=== PATIENT | female | born 1965 | race Caucasian/White ===

== ENCOUNTER 2016-09-06 22:27 | Inpatient (IN) | payer OTHER ==
--- NOTE | ~2016-09-06 | DS ---
Discharge Summary [address] [place]. [address] NAME: GERARD MERIDA : 65 STATUS : DIS IN PAT#: [id number] AGE: 51 ADM/REG DATE : 09/06/16 MR#: [id number] REPORT SERV DATE: 09/12/16 DICTATED BY: DATE: REPORT STATUS : Draft TRANSCRIBED BY: MODL DATE: 09/11/16 ADMISSION DATE: 09/06/2016 DISCHARGE DATE: 09/11/2016 DISCHARGE DIAGNOSES: 1. Right pleural effusion. 2. Pulmonary embolism. 3. Right lower lobe community-acquired pneumonia. 4. Diabetes mellitus type 2 with hyperglycemia. 5. Systolic and diastolic ischemic cardiomyopathy with ejection fraction of 15% to 20%. 6. Coronary artery disease. 7. Primary hypothyroidism. 8. Tobacco abuse. 9. Exposure to secondhand smoke. 10.Depression. 11.Noncompliance. PROCEDURES AND IMAGIN. 09/07/2016, chest PA and lateral showed:. a. Patchy consolidation at the right lung base with probable small right pleural fluid. Findings are likely secondary to pneumonia. b. Mild elevation of right hemidiaphragm. c. AICD in place. 2. 09/08/2016, chest PA and lateral showed patchy infiltrate with subsegmental consolidation and atelectasis, consistent with pneumonia. 3. 09/08/2016, venous Doppler bilateral lower extremities was negative for DVT. HOSPITAL COURSE: This is a pleasant 51-year-old female who was transferred from [facility], who had presented to their emergency room on 09/06/2016 with shortness of breath and generalized weakness. Their initial workup showed right-sided pneumonia and pulmonary embolism in left lower lobe. The patient did not want to stay and was subsequently given antibiotics there and a prescription for Xarelto. Please see admission H and P by Dr. Chris Stacy on 09/06/2016. I assumed care of the patient on 09/07/2016. The patient is a poor historian. I had a discussion about compliance of medications as the patient was unable to start Xarelto due to the fact her decided that it was too expensive. The patient presented with decreased lung sounds in the bases as well as 3 to 4+ pitting edema up to her lower abdomen and her sacral area. The patient states that sometimes she runs out of her insulin or metformin because she cannot afford them or spouse will use her metformin. The patient also sometimes goes to bed after taking her insulin in the morning and will wake up with it decreased. Upon pharmacy checking with her outpatient pharmacy for some of her medications, it was discovered that the patient was on Coreg 6.25 mg, but the last time they had a record of it being filled was in July 2015, but the patient states that she is taking it. The patient also had Aldactone 25 mg last filled in February 2015, but the patient states that she is taking it. The patient also thought she was on short-acting insulin, but according to outpatient pharmacy's record, she was on Lantus 35 units twice daily. The patient has a pulmonary emboli, for which she Discharge Summary [address] [address] NAME: GERARD MERIDA : 65 STATUS : DIS IN PAT#: [id number] AGE: 51 ADM/REG DATE : 09/06/16 MR#: [id number] REPORT SERV DATE: 09/12/16 DICTATED BY: DATE: REPORT STATUS : Draft TRANSCRIBED BY: MODL DATE: 09/11/16 receives Lovenox and now has been transitioned to Xarelto. The patient will be sent home with a Xarelto starter pack and a prescription for the first month as well as a discount card. The patient has received Rocephin and azithromycin for community-acquired pneumonia and is now finished with her antibiotic treatment. The patient's right-sided pleural effusion was treated with diuresis, and it has resolved. The patient's diabetes mellitus type 2 with hyperglycemia showed that she had a hemoglobin A1c of 10.5. car pick up driver has been in to discuss with her, and the patient will be given a prescription for a FreeStyle machine as well as lancets and strips, so that the patient will be able to purchase her strips at a more effective cost. The patient has been instructed to take her blood sugars four times a day. While the patient has been here, she has just required sliding scale insulin and her metformin was resumed yesterday. At this time, we would consider restarting her Levemir at a low dose. So, the patient will be going home on 15 units twice daily and she usually takes 35 units twice daily. The patient has been instructed to keep a log of her blood sugars four times a day and how much insulin she is using and whether she has been compliant with her metformin. The patient had an echo redone for her ischemic cardiomyopathy, and her ejection fraction continues to be between 15% to 20%. The patient also has history of coronary artery disease and depression. The patient has an AICD. The patient has primary hypothyroidism, with her TSH being 13.9. Her a.m. cortisol was 11.5. Her BNP was 44.1. The patient has had negative blood cultures x2. The patient states that her primary care has mentioned that he might send her to Endocrinology to take care of her hypothyroidism due to lack of control. It was stressed to the patient that compliance is a major issue. The patient also has been a smoker. We have discussed cessation extensively. The patient also admits that she has exposure to secondhand smoke from both her and her son. It was advised for the patient to ask them to go outside while she is present. The patient states that she will stop smoking. The patient seems very excited after strand buncher fine wire had talked to her about her cooking and the discussion about low sodium and feels that she has a friend who can help her learn to cook low-salt diet. The patient's bilateral lower extremity edema has been cut in half, still has pitting edema up to her lower knee, but has resolved majorly elsewhere. The patient exhibits no respiratory distress or chest pain and is able to ambulate in the hallway well. DISCHARGE DIET: 1800-calorie, 4 g sodium. DISCHARGE MEDICATIONS: Lantus 15 units twice daily with checking blood sugars before meals and bedtime and documenting them on one piece of paper, and if the previous day's blood sugar is greater than 200, to increase her dosage of Lantus by 2 units on both doses. The patient is to keep increasing until all blood sugars are between 90 to 160. If they are any less than 90, she will be decreasing both doses by 2 units. Aspirin 81 mg daily, Lasix 40 mg daily, Coreg 6.25 mg twice daily, Neurontin 400 mg twice daily, Synthroid 300 mcg daily, lisinopril 10 mg daily, Pravachol 40 mg daily, Aldactone 25 mg daily, Effexor 37.5 mg daily, Glucophage 1000 mg twice daily, potassium 20 mEq daily only if she is being compliant with taking her Lasix. ALLERGIES: THE PATIENT IS ALLERGIC TO ADHESIVE. DISCHARGE INSTRUCTIONS: The patient is to follow up with her PCP, Dr. Escobar, in one week. Should the patient develop any abnormal drops in her blood sugar, have any excessive chest Discharge Summary [address] [place]. [address] NAME: GERARD MERIDA : 65 STATUS : DIS IN PAT#: [id number] AGE: 51 ADM/REG DATE : 09/06/16 MR#: [id number] REPORT SERV DATE: 09/12/16 DICTATED BY: DATE: REPORT STATUS : Draft TRANSCRIBED BY: MODL DATE: 09/11/16 pain or shortness of breath, or any other emergent problems, she is to call her PCP or present to the ER. The patient is also to take in to Dr. Escobar's office her daily weight log and her blood sugar log, as well as a list of her discharge medications. Approximately, 40 minutes has been spent coordinating discharge care of this patient including [id number] encounter and summarization of the discharge. PHYSICAL EXAMINATION GENERAL: The patient is a 51-year-old female. VITAL SIGNS: Blood pressure is 99/55, heart rate is 72, temperature is 97.1, O2 saturation is 94% on room air, and respirations are 16. HEENT: Head is atraumatic, normocephalic. Pupils are equal, round, reactive to light. No xanthelasma. Sclerae are clear and anicteric. Good dentition. NECK: Supple with no obvious thyromegaly or lymphadenopathy. Neck veins are flat. CARDIAC: The patient is in a regular rhythm with no obvious murmurs, rubs, or gallops. LUNGS: Lungs are clear to auscultation with normal respiratory effort. GI: Abdomen is soft and nontender. Active bowel sounds in all four quadrants. Normal bowel habitus. No palpable organomegaly. EXTREMITIES: The patient has bilateral lower extremity edema, 2+ to her knees. The patient's DP and PT pulses are palpable bilaterally. No clubbing or cyanosis. MUSCULOSKELETAL: Moves all extremities x4. Ambulatory without assistance. No difficulties with balance. SKIN: Warm and dry with normal color and turgor. The patient does have multiple areas of healing skin lesions on her extremities, her face, and her belly. NEURO/PSYCH: The patient is alert and oriented x4, pleasant, cooperative. Cranial nerves II through XII are grossly intact. Affect is bright. No apparent anxiety or depression. SLC/MODL Natasha Galvez NP / [id number] / [id number] CC: MD Scott Loza M.D.
--- NOTE | ~2016-09-06 | HP ---
History And Physical [id number] [facility] [place]. [address] NAME: GERARD LAIRD : 65 STATUS : ADM Jakob PAT#: [id number] AGE: 51 ADM/REG DATE : 09/06/16 MR#: [id number] REPORT SERV DATE: 09/07/16 DICTATED BY: CHRIS DAMIAN DATE: 09/07/16 REPORT STATUS : Draft TRANSCRIBED BY: MODMarivel DATE: 09/07/16 DATE OF ADMISSION: 09/06/2016 CHIEF COMPLAINT: This is a patient I had accepted in transfer from [facility], after speaking with Dr. Hatch. According to Dr. Hatch, the patient had presented to their emergency room yesterday with shortness of breath and generalized weakness. Initial workup showed right-sided pneumonia and pulmonary embolism in the left lower lobe and lingular branches of the pulmonary artery. The patient was advised admission, but wanted to leave and she was subsequently given antibiotics there and a prescription for Xarelto after she was given some Lovenox. The patient went home, but could not afford the Xarelto and subsequently this morning called her PCP, who thought it was best she went back to the emergency room there. This evening however she was willing to be admitted, was given intravenous Rocephin and Lovenox subcutaneously. A CT angiogram showed a large right-sided pleural effusion with pneumonia, pulmonary emboli in the left lower lobe and lingular branches of the pulmonary artery. We were asked to accept the patient in transfer. Vitals just prior to transfer according to Dr. Hatch, she was afebrile, heart rate was 89, respirations 20, blood pressure was 136/92. Labs looked fine as well. At the time of my evaluation here, she denied any chest pain or palpitations. She had no orthopnea. She had no cough, hemoptysis, night sweats, or weight loss. She has not had any recent falls or loss of consciousness. She did not have any fevers, chills, nausea, vomiting, diarrhea, or dysuria. She denied any hematemesis, hematochezia, or hematuria. No other history of recent travel or exposures other than those mentioned above. She does not particularly remember being sedentary in anyway or have other risk factors for pulmonary embolus. PAST MEDICAL HISTORY: Significant for history of diabetes mellitus, ischemic cardiomyopathy with ICD, last ejection fraction known was 15-20% according to a cath done in 2010. She also has hypothyroidism, coronary artery disease as well. SOCIAL HISTORY: She has about 30-pack year history of smoking and continues to do so. She denied any alcohol use or recreational drug use. FAMILY HISTORY: Noncontributory. MEDICATIONS: Her medications at home were reviewed by me in the chart today and reordered by me. REVIEW OF SYSTEMS: As in history of present illness. All other systems were reviewed in detail and are quite unremarkable. PHYSICAL EXAMINATION: GENERAL: This is a very pleasant 51-year-old, not in any acute distress. History And Physical [address] [address] NAME: GERARD LAIRD : 65 STATUS : ADM Jakob PAT#: [id number] AGE: 51 ADM/REG DATE : 09/06/16 MR#: [id number] REPORT SERV DATE: 09/07/16 DICTATED BY: CHRIS DAMIAN DATE: 09/07/16 REPORT STATUS : Draft TRANSCRIBED BY: ANGELO DATE: 09/07/16 HEENT: Her head is atraumatic and normocephalic. She is alert, awake, oriented to time, place, and person. Pupils are equal, reacting to light and accommodating. External ocular muscles are intact. Membranes are moist and pink. Sclerae are nonicteric. NECK: Supple with no jugular venous distention, lymphadenopathy, or thyromegaly. LUNGS: Clear to auscultation with no wheezes, rubs, or crackles. HEART: Heart sounds were regular with no murmurs, rubs, or gallops. ABDOMEN: Soft and nontender. Bowel sounds are present. There is some dependent edema in the back. EXTREMITIES: Bilateral pitting lower extremity edema with no cyanosis or clubbing. NEUROLOGIC: Grossly intact. No focal sensory or motor deficits. Higher functions appeared intact. VITAL SIGNS: Her vital signs today showed a temperature of 97.9, pulse 88, respirations 16 a minute, blood pressure was 123/79, and oxygen saturations were 92% on 2 L via nasal cannula. LABORATORY DATA: All data including laboratory data was reviewed from data which was sent with the patient from [facility]. IMPRESSION: 1. Acute pulmonary embolism. 2. Community-acquired pneumonia. 3. Large right-sided pleural effusion parapneumonic. 4. Diabetes mellitus. 5. Ischemic cardiomyopathy with implantable cardioverter defibrillator, and an ejection fraction of 15-20%. 6. Coronary artery disease. 7. Hypothyroidism. PLAN: We will admit Mrs. Laird to the Hospitalist Service with cardiac telemetry for a 24-hour observation period. We will start her on low molecular weight heparin and a dose of 1 mg/kg subcutaneously every 12 hours. We will transition to oral therapy in the morning. Meanwhile, we will obtain cultures, start her on empiric IV antibiotics for community-acquired pneumonia, the large pleural effusion will probably benefit from a thoracentesis, but unfortunately she is on anticoagulation. We will also start her on blood sugar control with NovoLog given subcutaneously per sliding scale and check her A1c. We will start her on IV diuretics cautiously. Follow output and daily weights. We will also check her TSH and continue replacement therapy at this time. DVT prophylaxis will not be necessary as she is already on Lovenox in a therapeutic dose. I have discussed the above plans with the patient. Her questions were answered and she is agreeable to the above recommendations. Hospitalist Service will be following her during her stay here. /ANGELO Chris Damian, History And Physical [address] [address] NAME: GERARD LAIRD : 65 STATUS : ADM Jakob PAT#: [id number] AGE: 51 ADM/REG DATE : 09/06/16 MR#: [id number] REPORT SERV DATE: 09/07/16 DICTATED BY: CHRIS DAMIAN DATE: 09/07/16 REPORT STATUS : Draft TRANSCRIBED BY: ANGELO DATE: 09/07/16 Germán / [id number] CC: Jermaine Pulliam MD
[~2016-09-06 22:27] MED LIST: ASAB PO; CELEXA20 PO; COREG12 PO; COREG3 PO; DIABETA5 PO; GLUCOPHAGE1000 MG PO; GLUCPH PO; JANUVIA100 MG PO; L20 PO; LEVOTHROID137 MCG PO; LEVOTHROID200 MCG PO; LEVOTHROID75 MCG PO; MIRALAXPKT PO; MULTIPLE VIT PO; NEUR100 PO; PRAVAC PO; PRAVACHOL40 MG PO; PRILO PO; PRILOSEC OTC20 MG PO; PRIN2.5 PO; PRIN5 PO; SENOKOTS PO; SPIRO25 PO; SYNTHROID175 MCG PO
[2016-09-06] MEDS ORDERED: SYNTHROID300 MCG PO (23:11)
[2016-09-06] MEDS ORDERED: GLUCOPHAGE1000 MG PO (23:12)
[2016-09-06] MEDS ORDERED: NEUR400 PO (23:13)
[2016-09-06] MEDS ORDERED: COREG PO (23:15)
[2016-09-06] MEDS ORDERED: PRAVASTATIN PO (23:16)
[2016-09-06] MEDS ORDERED: ALDACTONE PO (23:16)
[2016-09-06] MEDS ORDERED: LISINOPRIL PO (23:16)
[2016-09-06] MEDS ORDERED: LASIX PO (23:17)
[2016-09-06] MEDS ORDERED: ASAB PO (23:17)
[2016-09-06] MEDS ORDERED: EFFEXOR XR PO (23:20)
[2016-09-06] MEDS ORDERED: FAST ACTING INSULIN SC (23:20)
[2016-09-06] MEDS ORDERED: *UNABLE1 (23:22)
[2016-09-07 02:14] LABS: ASCORBIC ACID (UR NOT ORDER) NEG (NEG); BILIRUBIN, URINE NEGATIVE (NEG); KETONE, URINE NEGATIVE (NEG); LEUKOCYTE ESTERASE(NOT OR TRACE (NEG); WBC (NOT ORDERED) (RFLEX) 7 (0-5)
[2016-09-07 06:44] LABS: BASOPHILS 0.4 %; BASOPHILS ABSOLUTE 0.03 10/3/uL (0.0-0.16); EOSINOPHILS 2.3 %; EOSINOPHILS ABSOLUTE 0.17 10/3/uL (0.0-0.53); HEMATOCRIT 44.2 % (36.0-48.0); HEMOGLOBIN 14.2 g/dL (12.0-16.0); IMMATURE GRANULOCYTES 0.3 %; IMMATURE GRANULOCYTES ABSOLUTE 0.02 10/3/uL (0.0-0.11); LYMPHOCYTES 30.8 %; LYMPHOCYTES ABSOLUTE 2.31 10/3/uL (0.67-4.30); MANUAL DIFF NO %; MEAN CORPUS HGB CONC 32.1 g/dL (32.0-36.0); MEAN CORPUSCULAR HEMOGLOB 26.2 pg (26.0-34.0); MEAN CORPUSCULAR VOLUME 81.5 fL (80-100); MEAN PLATELET VOLUME 11.1 fL (9.2-13.0); MONOCYTES 7.7 %; MONOCYTES ABSOLUTE 0.58 10/3/uL (0.21-1.20); NEUTROPHILS 58.5 %; NEUTROPHILS ABSOLUTE 4.39 10/3/uL (2.02-8.40); PLATELET COUNT 202 10/3/uL (150-400); RBC DISTRIBUTION WIDTH 16.4 % (12.0-16.0); RED CELL COUNT 5.42 10/6/uL (4.0-5.6); WHITE BLOOD CELLS 7.5 10/3/uL (4.5-10.5)
[2016-09-07 07:08] LABS: BUN (BLOOD UREA NITROGEN) 15 MG/DL (6-23); CALCIUM, SERUM 8.4 MG/DL (8.5-10.4); CHLORIDE, SERUM 106 MMOL/L (96-112); CO2 (CARBON DIOXIDE) 23 MMOL/L (24-34); CREATININE 0.69 MG/DL (0.55-1.02); GFR AFRICAN AMERICAN 117 ML/MIN (>=60); GFR NON AFRICAN AMERICAN 101 ML/MIN (>=60); GLUCOSE, SERUM 117 MG/DL (60-99); PHOSPHORUS, SERUM 4.3 MG/DL (2.5-4.5); POTASSIUM, SERUM 3.3 MMOL/L (3.5-5.3); SODIUM, SERUM 144 MMOL/L (135-148)
[2016-09-07] MEDS ORDERED: EFFEXXR37 PO (10:37)
[2016-09-07] MEDS ORDERED: COREG6 PO (10:37)
[2016-09-07] MEDS ORDERED: SPIRO25 PO (10:37)
[2016-09-07] MEDS ORDERED: FAST ACTING INSULIN SC (10:39)
[2016-09-07] MEDS ORDERED: PRIN10 PO (10:40)
[2016-09-07] MEDS ORDERED: PRAVACHOL40 MG PO (10:40)
[2016-09-07] MEDS ORDERED: LANTUS SC (10:42)
[2016-09-07] MEDS ORDERED: L20 PO (10:47)
[2016-09-07 18:17] LABS: INTERNATIONAL NORMAL RATI 1.2 UNITS (-); PARTIAL THROMBO TIME 37.3 SEC (22.5-37.2)
[2016-09-07 18:18] LABS: PROTIME (NOT ORD) 14.7 SEC (12.0-14.5)
[2016-09-08 09:31] LABS: BASOPHILS 0.8 %; BASOPHILS ABSOLUTE 0.06 10/3/uL (0.0-0.16); EOSINOPHILS 1.6 %; EOSINOPHILS ABSOLUTE 0.11 10/3/uL (0.0-0.53); HEMATOCRIT 43.5 % (36.0-48.0); HEMOGLOBIN 14.2 g/dL (12.0-16.0); IMMATURE GRANULOCYTES 0.1 %; IMMATURE GRANULOCYTES ABSOLUTE 0.01 10/3/uL (0.0-0.11); LYMPHOCYTES 35.6 %; LYMPHOCYTES ABSOLUTE 2.52 10/3/uL (0.67-4.30); MEAN CORPUS HGB CONC 32.6 g/dL (32.0-36.0); MEAN CORPUSCULAR HEMOGLOB 26.3 pg (26.0-34.0); MEAN CORPUSCULAR VOLUME 80.7 fL (80-100); MEAN PLATELET VOLUME 11.1 fL (9.2-13.0); MONOCYTES 8.2 %; MONOCYTES ABSOLUTE 0.58 10/3/uL (0.21-1.20); NEUTROPHILS 53.7 %; NEUTROPHILS ABSOLUTE 3.79 10/3/uL (2.02-8.40); PLATELET COUNT 214 10/3/uL (150-400); RBC DISTRIBUTION WIDTH 16.7 % (12.0-16.0); RED CELL COUNT 5.39 10/6/uL (4.0-5.6); WHITE BLOOD CELLS 7.1 10/3/uL (4.5-10.5)
[2016-09-08 09:32] LABS: MANUAL DIFF NO %
[2016-09-08 09:47] LABS: BUN (BLOOD UREA NITROGEN) 17 MG/DL (6-23); CHLORIDE, SERUM 104 MMOL/L (96-112); CO2 (CARBON DIOXIDE) 27 MMOL/L (24-34); CREATININE 0.87 MG/DL (0.55-1.02); FREE T4 1.84 NG/DL (0.76-1.46); GFR AFRICAN AMERICAN 89 ML/MIN (>=60); GFR NON AFRICAN AMERICAN 77 ML/MIN (>=60); POTASSIUM, SERUM 3.6 MMOL/L (3.5-5.3); SODIUM, SERUM 143 MMOL/L (135-148)
[2016-09-08 09:49] LABS: GLUCOSE, SERUM 161 MG/DL (60-99)
[2016-09-09 05:08] LABS: BASOPHILS 0.9 %; BASOPHILS ABSOLUTE 0.06 10/3/uL (0.0-0.16); EOSINOPHILS 2.3 %; EOSINOPHILS ABSOLUTE 0.16 10/3/uL (0.0-0.53); HEMATOCRIT 42.5 % (36.0-48.0); HEMOGLOBIN 13.8 g/dL (12.0-16.0); IMMATURE GRANULOCYTES 0.3 %; IMMATURE GRANULOCYTES ABSOLUTE 0.02 10/3/uL (0.0-0.11); LYMPHOCYTES 36.7 %; LYMPHOCYTES ABSOLUTE 2.53 10/3/uL (0.67-4.30); MEAN CORPUS HGB CONC 32.5 g/dL (32.0-36.0); MEAN CORPUSCULAR HEMOGLOB 26.4 pg (26.0-34.0); MEAN CORPUSCULAR VOLUME 81.3 fL (80-100); MEAN PLATELET VOLUME 11.6 fL (9.2-13.0); MONOCYTES 9.9 %; MONOCYTES ABSOLUTE 0.68 10/3/uL (0.21-1.20); NEUTROPHILS 49.9 %; NEUTROPHILS ABSOLUTE 3.44 10/3/uL (2.02-8.40); PLATELET COUNT 213 10/3/uL (150-400); RBC DISTRIBUTION WIDTH 16.3 % (12.0-16.0); RED CELL COUNT 5.23 10/6/uL (4.0-5.6); WHITE BLOOD CELLS 6.9 10/3/uL (4.5-10.5)
[2016-09-09 05:09] LABS: MANUAL DIFF NO %
[2016-09-09 05:18] LABS: CHLORIDE, SERUM 106 MMOL/L (96-112); CO2 (CARBON DIOXIDE) 27 MMOL/L (24-34); CREATININE 1.02 MG/DL (0.55-1.02); GFR AFRICAN AMERICAN 74 ML/MIN (>=60); GFR NON AFRICAN AMERICAN 64 ML/MIN (>=60); GLUCOSE, SERUM 140 MG/DL (60-99); SODIUM, SERUM 142 MMOL/L (135-148)
[2016-09-09 05:28] LABS: BUN (BLOOD UREA NITROGEN) 21 MG/DL (6-23)
[2016-09-10 06:21] LABS: BASOPHILS 0.6 %; BASOPHILS ABSOLUTE 0.04 10/3/uL (0.0-0.16); EOSINOPHILS ABSOLUTE 0.13 10/3/uL (0.0-0.53); HEMATOCRIT 40.9 % (36.0-48.0); HEMOGLOBIN 13.1 g/dL (12.0-16.0); IMMATURE GRANULOCYTES 0.2 %; IMMATURE GRANULOCYTES ABSOLUTE 0.01 10/3/uL (0.0-0.11); LYMPHOCYTES 34.9 %; LYMPHOCYTES ABSOLUTE 2.26 10/3/uL (0.67-4.30); MEAN CORPUSCULAR HEMOGLOB 25.9 pg (26.0-34.0); MEAN CORPUSCULAR VOLUME 80.8 fL (80-100); MEAN PLATELET VOLUME 11.2 fL (9.2-13.0); MONOCYTES 8.3 %; MONOCYTES ABSOLUTE 0.54 10/3/uL (0.21-1.20); PLATELET COUNT 200 10/3/uL (150-400); RBC DISTRIBUTION WIDTH 16.7 % (12.0-16.0); RED CELL COUNT 5.06 10/6/uL (4.0-5.6); WHITE BLOOD CELLS 6.5 10/3/uL (4.5-10.5)
[2016-09-10 06:22] LABS: MANUAL DIFF NO %
[2016-09-10 06:31] LABS: BUN (BLOOD UREA NITROGEN) 21 MG/DL (6-23); CALCIUM, SERUM 8.2 MG/DL (8.5-10.4); CHLORIDE, SERUM 107 MMOL/L (96-112); CO2 (CARBON DIOXIDE) 23 MMOL/L (24-34); CREATININE 0.94 MG/DL (0.55-1.02); GFR AFRICAN AMERICAN 81 ML/MIN (>=60); GFR NON AFRICAN AMERICAN 70 ML/MIN (>=60); GLUCOSE, SERUM 153 MG/DL (60-99); POTASSIUM, SERUM 3.7 MMOL/L (3.5-5.3); SODIUM, SERUM 143 MMOL/L (135-148)
[2016-09-11 05:49] LABS: BUN (BLOOD UREA NITROGEN) 23 MG/DL (6-23); CHLORIDE, SERUM 107 MMOL/L (96-112); CO2 (CARBON DIOXIDE) 24 MMOL/L (24-34); CREATININE 0.89 MG/DL (0.55-1.02); GFR AFRICAN AMERICAN 87 ML/MIN (>=60); GFR NON AFRICAN AMERICAN 75 ML/MIN (>=60); GLUCOSE, SERUM 144 MG/DL (60-99); POTASSIUM, SERUM 3.8 MMOL/L (3.5-5.3); SODIUM, SERUM 142 MMOL/L (135-148)
[2016-09-11 06:19] LABS: BASOPHILS 0.6 %; BASOPHILS ABSOLUTE 0.04 10/3/uL (0.0-0.16); EOSINOPHILS 2.5 %; EOSINOPHILS ABSOLUTE 0.18 10/3/uL (0.0-0.53); HEMATOCRIT 41.4 % (36.0-48.0); HEMOGLOBIN 13.1 g/dL (12.0-16.0); IMMATURE GRANULOCYTES 0.3 %; IMMATURE GRANULOCYTES ABSOLUTE 0.02 10/3/uL (0.0-0.11); LYMPHOCYTES 34.5 %; LYMPHOCYTES ABSOLUTE 2.48 10/3/uL (0.67-4.30); MEAN CORPUS HGB CONC 31.6 g/dL (32.0-36.0); MEAN CORPUSCULAR VOLUME 82.3 fL (80-100); MEAN PLATELET VOLUME 11.1 fL (9.2-13.0); MONOCYTES 9.3 %; MONOCYTES ABSOLUTE 0.67 10/3/uL (0.21-1.20); NEUTROPHILS 52.8 %; NEUTROPHILS ABSOLUTE 3.79 10/3/uL (2.02-8.40); PLATELET COUNT 199 10/3/uL (150-400); RBC DISTRIBUTION WIDTH 16.9 % (12.0-16.0); RED CELL COUNT 5.03 10/6/uL (4.0-5.6); WHITE BLOOD CELLS 7.2 10/3/uL (4.5-10.5)
[2016-09-11 06:23] LABS: MANUAL DIFF NO %
[2016-09-11] MEDS ORDERED: XARELTO20 MG PO (10:54)
[2016-09-11] MEDS ORDERED: KLOR-CON20 MEQ PO (10:56)
== END 2016-09-11 17:27 | disposition home or self-care (01) | DRG 175 ==
LOC: 7NO 22:27
PROVIDERS: Hospitalist; Nurse Practitioner Family
DX: I26.99 Other pulmonary embolism without acute cor pulmonale (principal); J18.9 Pneumonia, unspecified organism; I50.43 Acute on chronic combined systolic (congestive) and diastolic (congestive) heart failure; J90 Pleural effusion, not elsewhere classified; E11.9 Type 2 diabetes mellitus without complications; I25.10 Atherosclerotic heart disease of native coronary artery without angina pectoris; E03.9 Hypothyroidism, unspecified; I25.5 Ischemic cardiomyopathy; Z77.22 Contact with and (suspected) exposure to environmental tobacco smoke (acute) (chronic); F32.9 Major depressive disorder, single episode, unspecified
CPT/HCPCS: 71020; 80048; 81001; 82533; 82962; 83036; 83605; 83735; 83880; 84100; 84145; 84439; 84443; 84481; 85025; 85610; 85730; 87040; 87449; 93005; 93970; A9270-GY; C8929; J0456; J2405; Q9957

== ENCOUNTER 2016-10-17 04:53 | Inpatient (IN) | payer OTHER ==
--- NOTE | ~2016-10-17 | HP ---
History And Physical [place] [id number] [facility] [place]. [address] NAME: GERARD LAIRD : 65 STATUS : ADM IN [facility]#: [id number] AGE: 51 ADM/REG DATE : 10/17/16 MR#: [id number] REPORT SERV DATE: 10/17/16 DICTATED BY: DATE: REPORT STATUS : Draft TRANSCRIBED BY: MODL DATE: 10/17/16 DATE OF ADMISSION: 10/17/2016 [facility] CHIEF COMPLAINT: Shortness of breath. HISTORY OF PRESENT ILLNESS: Ms. Laird is a 51-year-old white female with known history of congestive heart failure, ejection fraction between 15% and 20%, with prior history of ICD placement. She was recently admitted to the hospital on 09/06 and discharged on 09/11 after treatment for congestive heart failure exacerbation, right lower lobe community-acquired pneumonia, pulmonary embolism, and a right-sided pleural effusion. She reports that she was doing well on discharge, and has been making attempts to modify her diet to include fluid restriction and sodium restriction, although has not always been successful with this. She also has not always been compliant with her Lasix dosing. She noticed that she was having declining urine output several weeks ago and decided that the Lasix was the cause of her problem and that she urinated more when she did not take it. She also has not followed up with Dr. Escobar as recommended. Her shortness of breath has been progressive over the past several weeks, initially with just exertion, then she began to notice paroxysmal nocturnal dyspnea and orthopnea as well. Recently, she has had profound dyspnea on exertion as well as increasing edema in lower extremities and abdomen. She reports "extreme" pain in her legs, particularly when standing. The edema has extended up to her abdomen. Aside from declining urine output, she denies any other or GI symptoms. She denies any chest pain or palpitations. She reports taking her levothyroxine consistently since discharge. She reports 30-pound weight gain over the past two weeks. She was seen recently at the [facility] and told that she requires a right thoracentesis, but had not been able to arrange this as an outpatient. In the emergency department, initial evaluation has revealed elevated BNP and a chest x-ray consistent with acute pulmonary edema. There does not appear to be a significant effusion nor any residual infiltrate. She is referred to the Hospitalist Service for management of presumed acute congestive heart failure exacerbation. She has been given Bumex in the emergency department with minimal urine output by her report. She also was given dosages of cefepime and vancomycin, Dilaudid and Zofran. REVIEW OF SYSTEMS: Full 14-point review of systems is negative except as dictated in the history of present illness. PAST MEDICAL HISTORY: History And Physical [address] [address] NAME: GERARD LAIRD : 65 STATUS : ADM IN [facility]#: [id number] AGE: 51 ADM/REG DATE : 10/17/16 MR#: [id number] REPORT SERV DATE: 10/17/16 DICTATED BY: DATE: REPORT STATUS : Draft TRANSCRIBED BY: MODMarivel DATE: 10/17/16 1. Congestive heart failure-mixed systolic and diastolic with echocardiogram 09/08/2016 demonstrating ejection fraction around 15% with severe systolic and diastolic dysfunction. 2. Coronary artery disease. History of ischemic cardiomyopathy with ICD. 3. Insulin-dependent diabetes mellitus type 2-uncontrolled with last hemoglobin A1c 10.5. 4. Hypothyroidism-also uncontrolled with last TSH 13.9, free T4 1.84, free T3 1.27. 5. Tobacco dependence with ongoing tobacco abuse. 6. Recent right lower lobe community-acquired pneumonia with possible associated right lower lobe effusion. 7. Recently diagnosed pulmonary embolism-left lower lobe and lingular branches of the pulmonary artery. Noncompliant with Xarelto. 8. Depression. 9. Obesity. 10.Longstanding history of medical noncompliance. PAST SURGICAL HISTORY: Includes ICD placement 2011, hysterectomy, cholecystectomy, history of thyroid surgery, history of a trimalleolar right ankle fracture. ALLERGIES: ADHESIVE. HOME MEDICATIONS: Include, 1. Aspirin 81 mg p.o. daily. 2. Coreg 6.25 mg p.o. twice a day. 3. Benadryl 25 mg p.o. daily as needed. 4. Neurontin 400 mg p.o. twice a day. 5. Prinivil 10 mg p.o. daily. 6. Glucophage 1000 mg p.o. twice a day before meals. 7. Sublingual nitroglycerin 0.4 mg q.5 minutes x3 p.r.n. chest pain. 8. Pravastatin 40 mg p.o. at bedtime. 9. Xarelto 15 mg p.o. twice a day-for three weeks, which patient discontinued and began taking 20 mg p.o. daily early, and occasionally forgets to take dosages of that. 10.Aldactone 25 mg p.o. daily. 11.Effexor XR 37.5 mg p.o. daily. 12.Levothyroxine 300 mcg p.o. daily. Please note on extended questioning, patient is uncertain which of these medications she actually takes and states that for the majority of twice a day dosed medications, she only takes it once a day due to "I cannot remember." SOCIAL HISTORY: The patient is . Her is here in the room with her and seems supportive of her. He too is concerned about her noncompliance. She does smoke, but recently has been cutting back from a pack a day for the past 30 years to five cigarettes a day presently. She denies any IV drug use or illicit substances. She does drink an occasional light beer. FAMILY HISTORY: Pertinent for coronary artery disease and COPD in multiple first-degree relatives. History And Physical [address] [address] NAME: GERARD LAIRD : 65 STATUS : ADM IN [facility]#: [id number] AGE: 51 ADM/REG DATE : 10/17/16 MR#: [id number] REPORT SERV DATE: 10/17/16 DICTATED BY: DATE: REPORT STATUS : Draft TRANSCRIBED BY: ANGELO DATE: 10/17/16 PHYSICAL EXAMINATION: VITAL SIGNS: Blood pressure 141/123 initially-now 138/96, temperature 97.4, pulse 102, respirations 22, oxygen saturations 99% on room air. GENERAL: This is an obese white female, looking older than her stated age, in no acute distress. Tearful. HEENT: Normocephalic, atraumatic. Pupils are equally round and reactive to light. No scleral icterus. No sinus tenderness to palpation. No nasal drainage. Oropharynx reveals moist pink mucosa with no posterior pharyngeal erythema nor exudate. NECK: Supple with no jugular venous distention. No lymphadenopathy. No thyromegaly. CARDIOVASCULAR: Regular rate and rhythm. No murmurs, rubs or gallops. LUNGS: Coarse inspiratory crackles at bilateral bases with no wheezing or rhonchi. No accessory muscle use. ABDOMEN: Distended with no suggestion of ascites. There are prominent striae across the abdomen. Decreased bowel sounds in four quadrants. No obvious hepatosplenomegaly, although examination is limited due to subcutaneous abdominal wall edema and obesity. EXTREMITIES: 3+ pitting edema in bilateral lower extremities from the toes to the thighs. Nonspecific erythema and tenderness to palpation. Negative Homans sign. No warmth. NEUROLOGIC: Cranial nerves 2 through 12 were tested and are intact. Deep tendon reflexes 2+, bilateral brachioradialis and patellar tendons. Sensation intact to fine touch and temperature in all four limbs. The patient is able to move all four limbs against gravity with 5/5 strength. LAB DATA: White blood cell count 8.9, hemoglobin 12.9, hematocrit 41.5, platelets 259. INR 1.3. BNP 650. Lactic acid level 2.5. Procalcitonin negative. Sodium 141, potassium 4.2, chloride 108, bicarb 26, BUN 17, creatinine 0.89, glucose 388, calcium 8.4, total protein 5.6, albumin 2.7, total bilirubin 0.9, alkaline phosphatase 189, ALT 19, AST 19. Troponin 0.04. EKG shows sinus tachycardia with a rate of 103, and low voltage with age indeterminate anterolateral infarct-no acute changes from last admission's EKG. Portable chest x-ray shows increasing pulmonary venous hypertension with pulmonary edema, small right pleural effusion, and subsegmental atelectasis. IMPRESSION: 1. Acute congestive heart failure exacerbation, mixed systolic and diastolic with known ejection fraction 15%-20%. 2. Anasarca. 3. Insulin-dependent diabetes mellitus type 2, presently uncontrolled. 4. Hypothyroidism-questionable compliance. 5. Recent pneumonia with possible right lower lobe effusion. 6. Recent pulmonary embolism-noncompliant with Xarelto as previously prescribed. 7. Coronary artery disease. 8. Longstanding tobacco dependence with ongoing tobacco abuse. 9. Depression. 10.Medical noncompliance. History And Physical [address] [place]. [address] NAME: GERARD LAIRD : 65 STATUS : ADM IN [facility]#: [id number] AGE: 51 ADM/REG DATE : 10/17/16 MR#: [id number] REPORT SERV DATE: 10/17/16 DICTATED BY: DATE: REPORT STATUS : Draft TRANSCRIBED BY: ANGELO DATE: 10/17/16 PLAN: 1. The patient has been admitted to [address] [place] [address], [address] Dr[address] Migel Vásquez. 2. Fluid removal primarily is the goal, and we will attempt with IV Bumex and oral Diuril, with strict I's and O's, close creatinine monitoring, fluid and sodium restriction. 3. Low-dose basal insulin and sliding scale insulin, with a diabetic diet while she is here. 4. Recheck TSH, free T4, free T3, and adjust levothyroxine dosing accordingly. 5. Repeat two-view chest x-ray in the morning after diuresis to determine if there is a need for a right-sided thoracentesis this admission. 6. Resume loading dose of Xarelto because patient was noncompliant with it previously despite known pulmonary embolism. Also given swelling in the lower extremities and pain, repeat bilateral lower extremity venous Doppler ultrasound (was negative last admission). 7. The patient was counseled extensively on the need for improved medical compliance, tobacco cessation, dietary adherence. KATIA/ANGELO Migel Vásquez M.D. / [id number] CC: Germán Churchill M.D.
--- NOTE | ~2016-10-17 | DS ---
Discharge Summary [place] [address] [place]. [address] NAME: GERARD MERIDA : 65 STATUS : DIS IN PAT#: [id number] AGE: 51 ADM/REG DATE : 10/17/16 MR#: [id number] REPORT SERV DATE: 10/22/16 DICTATED BY: CURTIS PHIPPS DATE: 10/21/16 REPORT STATUS : Draft TRANSCRIBED BY: ANGELO DATE: 10/21/16 ADMISSION DATE: 10/17/2016 DISCHARGE DATE: 10/21/2016 DISCHARGE DIAGNOSES: 1. Acute decompensated heart failure with reduced ejection fraction around 15%. 2. Severe hypothyroidism. 3. Coronary artery disease. 4. History of nonischemic cardiomyopathy with an automatic implantable cardioverter defibrillator in place. 5. Tobacco abuse. 6. History of recent diagnosis of pulmonary embolism in the left upper lobe and lingular branches of the pulmonary artery. 7. Depression. 8. Obesity. DISCHARGE CONDITION: Stable. CONSULTATIONS: None. HISTORY OF PRESENT ILLNESS: For detailed HPI, please make reference to Dr. Vásquez's dictation on 10/17/2016. In brief, this is a 51-year-old female with medical history of congestive heart failure, ejection fraction between 15% to 20%, with prior history of AICD placement, who presented to the emergency room with complaints of worsening shortness of breath and reduced urinary output. There was also associated generalized body swelling. In the ER, vital signs, blood pressure was 141/96, temperature 97.4, pulse 102, saturating 99% on room air. Physical exam was noted for 3+ bilateral pitting edema. Coarse inspiratory crackles at bilateral bases with no wheezing or rhonchi. Laboratory tests; BNP 650, creatinine 0.89, glucose 388. EKG showed sinus tachycardia. Chest x-ray shows increasing pulmonary venous hypertension with pulmonary edema and a small right pleural effusion. An assessment of acute decompensated heart failure with reduced ejection fraction was made in the ER. The patient was admitted to the Hospitalist Service. HOSPITAL COURSE: 1. Acute decompensated heart failure with reduced ejection fraction of 15% to 20%. The patient was started on IV Bumex and oral Diuril and was noted to have significant urine output. The patient's shortness of breath and anasarca continued to improve throughout the course of this admission. The patient was subsequently transitioned from IV diuretics to p.o. diuretics and continued to make significant urine output. At the time of discharge, the patient's bilateral pitting edema has almost completely resolved, no crackles in the lungs, and the patient was saturating 100% on room air. The patient was advised to continue followup with Cardiology as an outpatient. 2. Severe hypothyroidism. The patient's TSH was rechecked during the course of this admission, found to be 36.6. The patient claimed that she takes levothyroxine 300 mcg at home daily. There was concern that there is possibility of medication noncompliance in this patient. The patient was transiently treated with IV levothyroxine and IV Discharge Summary [address] [address] NAME: GERARD MERIDA : 65 STATUS : DIS IN PAT#: [id number] AGE: 51 ADM/REG DATE : 10/17/16 MR#: [id number] REPORT SERV DATE: 10/22/16 DICTATED BY: CURTIS PHIPPS DATE: 10/21/16 REPORT STATUS : Draft TRANSCRIBED BY: ANGELO DATE: 10/21/16 thyroxine during the course of this admission. At the time of discharge, the patient was transitioned back to p.o. levothyroxine and was advised to continue followup with primary care physician. 3. Diabetes mellitus type 2. The patient's blood sugar was managed with insulin throughout the course of this admission. Blood sugar remains relatively stable. The patient was advised to continue followup with primary care physician. 4. Recent history of pulmonary embolism, on Xarelto. The patient endorsed history of nonadherence to Xarelto. The patient was counseled extensively during the course of this admission. The patient was advised to resume Xarelto at the time of discharge and continue followup with primary care physician. DISCHARGE DISPOSITION: Home. DISCHARGE FOLLOWUP: 1. Follow up with Endocrinology within two to three weeks of discharge. 2. Follow up with primary care physician within one week of discharge. 3. Follow up with Cardiology within two to three weeks of discharge. DISCHARGE ACTIVITIES: As tolerated. DISCHARGE DIET: Low-salt diet and fluid restriction of 1.5 L a day. DISCHARGE MEDICATIONS: 1. Aspirin 81 mg p.o. daily. 2. Bumex 2 mg p.o. q.8 hours. 3. Coreg 6.25 mg p.o. b.i.d. 4. Gabapentin 400 mg p.o. b.i.d. 5. Levothyroxine 200 mcg p.o. daily. 6. Lisinopril 10 mg p.o. daily. 7. Pravastatin 40 mg p.o. daily. 8. Xarelto 20 mg p.o. daily. 9. Spironolactone 25 mg p.o. daily. 10.Glucophage 100 mg p.o. b.i.d. 11.Effexor XR 37.5 mg p.o. daily. 12.Nitroglycerin 0.4 mg p.o. daily. Greater than 35 minutes was used to prepare this patient's discharge, reconcile medication, advise the patient on discharge plans and followup. DICTATED BY: MD ASPEN Adler/ANGELO Discharge Summary [address] [address] NAME: GERARD MERIDA : 65 STATUS : DIS IN [facility]#: [id number] AGE: 51 ADM/REG DATE : 10/17/16 MR#: [id number] REPORT SERV DATE: 10/22/16 DICTATED BY: CURTIS PHIPPS DATE: 10/21/16 REPORT STATUS : Draft TRANSCRIBED BY: MODL DATE: 10/21/16 Curtis Phipps MD / [id number] CC: MD Scott Adler M.D.
[~2016-10-17 04:53] MED LIST changes: +*UNABLE1; +ALDACTONE PO; +COREG PO; +COREG6 PO; +EFFEXOR XR PO; +EFFEXXR37 PO; +FAST ACTING INSULIN SC; +KLOR-CON20 MEQ PO; +LANTUS SC; +LASIX PO; +LISINOPRIL PO; +NEUR400 PO; +PRAVASTATIN PO; +PRIN10 PO; +SYNTHROID300 MCG PO; +XARELTO20 MG PO
[2016-10-17 05:10] LABS: BASOPHILS 0.3 %; BASOPHILS ABSOLUTE 0.03 10/3/uL (0.0-0.16); EOSINOPHILS 0.8 %; EOSINOPHILS ABSOLUTE 0.07 10/3/uL (0.0-0.53); ER CBC TAT 0 Hrs 04 MinsNP; HEMATOCRIT 41.5 % (36.0-48.0); HEMOGLOBIN 12.9 g/dL (12.0-16.0); IMMATURE GRANULOCYTES 0.2 %; IMMATURE GRANULOCYTES ABSOLUTE 0.02 10/3/uL (0.0-0.11); LYMPHOCYTES 16.6 %; LYMPHOCYTES ABSOLUTE 1.47 10/3/uL (0.67-4.30); MANUAL DIFF NO %; MEAN CORPUS HGB CONC 31.1 g/dL (32.0-36.0); MEAN CORPUSCULAR HEMOGLOB 24.9 pg (26.0-34.0); MEAN PLATELET VOLUME 10.3 fL (9.2-13.0); MONOCYTES 8.6 %; MONOCYTES ABSOLUTE 0.76 10/3/uL (0.21-1.20); NEUTROPHILS 73.5 %; NEUTROPHILS ABSOLUTE 6.52 10/3/uL (2.02-8.40); PLATELET COUNT 259 10/3/uL (150-400); RBC DISTRIBUTION WIDTH 17.7 % (12.0-16.0); RED CELL COUNT 5.19 10/6/uL (4.0-5.6); WHITE BLOOD CELLS 8.9 10/3/uL (4.5-10.5)
[2016-10-17 05:17] LABS: PARTIAL THROMBO TIME 29.7 SEC (22.5-37.2)
[2016-10-17 05:18] LABS: INTERNATIONAL NORMAL RATI 1.3 UNITS (-); PROTIME (NOT ORD) 16.4 SEC (12.0-14.5)
[2016-10-17 05:27] LABS: CALCIUM, SERUM 8.4 MG/DL (8.5-10.4); CHLORIDE, SERUM 108 MMOL/L (96-112); CO2 (CARBON DIOXIDE) 26 MMOL/L (24-34); CREATININE 0.89 MG/DL (0.55-1.02); GFR AFRICAN AMERICAN 87 ML/MIN (>=60); GFR NON AFRICAN AMERICAN 75 ML/MIN (>=60); POTASSIUM, SERUM 4.2 MMOL/L (3.5-5.3); SGOT(AST) 19 U/L (5-40); SGPT(ALT) 19 U/L (5-65); SODIUM, SERUM 141 MMOL/L (135-148); TOTAL BILIRUBIN 0.9 MG/DL (0-1.2); TROPONIN I 0.04 NG/ML (<0.05)
[2016-10-17 05:32] LABS: A/G RATIO 0.9 (0.7-1.9); ALBUMIN 2.7 G/DL (3.5-5.0); ALKALINE PHOSPHATASE 185 U/L (45-117); BUN (BLOOD UREA NITROGEN) 17 MG/DL (6-23); GLOBULIN 2.9 G/DL (2.5-4.1); GLUCOSE, SERUM 388 MG/DL (60-99); TOTAL PROTEIN 5.6 G/DL (6.0-8.5)
[2016-10-17 06:07] LABS: LACTATE 2.6 MMOL/L (0.3-2.4)
[2016-10-17 06:27] LABS: PROCALCITONIN <0.05 ng/mL (<0.5)
[2016-10-17] MEDS ORDERED: XARELTO15 MG PO (10:01)
[2016-10-17] MEDS ORDERED: XARELTO20 MG PO (10:02)
[2016-10-17] MEDS ORDERED: GLUCOPHAGE1000 MG PO (10:11)
[2016-10-17] MEDS ORDERED: NEUR400 PO (10:11)
[2016-10-17] MEDS ORDERED: NITROQUICK0.4 MG SL (10:12)
[2016-10-17] MEDS ORDERED: LEVOTHYROXIN150 MCG PO (10:13)
[2016-10-17] MEDS ORDERED: BEN25 PO (10:13)
[2016-10-17] MEDS ORDERED: EFFEXXR37 PO (10:15)
[2016-10-17] MEDS ORDERED: HALF81 PO (10:18)
[2016-10-17] MEDS ORDERED: COREG6 PO (10:28)
[2016-10-17] MEDS ORDERED: SPIRO25 PO (10:28)
[2016-10-17] MEDS ORDERED: PRAVACHOL40 MG PO (10:29)
[2016-10-17] MEDS ORDERED: PRIN10 PO (10:31)
[2016-10-17] MEDS ORDERED: GOLD BOND TOP (10:38)
[2016-10-17 14:50] LABS: FREE T4 0.87 NG/DL (0.76-1.46)
[2016-10-17 14:52] LABS: ULTRASENSITIVE TSH 36.6 MCIU/ML (0.358-3.740)
[2016-10-18 06:36] LABS: BASOPHILS 0.4 %; BASOPHILS ABSOLUTE 0.03 10/3/uL (0.0-0.16); EOSINOPHILS 3.7 %; HEMATOCRIT 39.7 % (36.0-48.0); HEMOGLOBIN 12.1 g/dL (12.0-16.0); IMMATURE GRANULOCYTES 0.2 %; IMMATURE GRANULOCYTES ABSOLUTE 0.02 10/3/uL (0.0-0.11); LYMPHOCYTES 18.4 %; LYMPHOCYTES ABSOLUTE 1.49 10/3/uL (0.67-4.30); MANUAL DIFF NO %; MEAN CORPUS HGB CONC 30.5 g/dL (32.0-36.0); MEAN CORPUSCULAR HEMOGLOB 24.5 pg (26.0-34.0); MEAN CORPUSCULAR VOLUME 80.4 fL (80-100); MEAN PLATELET VOLUME 10.5 fL (9.2-13.0); MONOCYTES 8.2 %; MONOCYTES ABSOLUTE 0.66 10/3/uL (0.21-1.20); NEUTROPHILS 69.1 %; NEUTROPHILS ABSOLUTE 5.59 10/3/uL (2.02-8.40); PLATELET COUNT 226 10/3/uL (150-400); RBC DISTRIBUTION WIDTH 17.6 % (12.0-16.0); RED CELL COUNT 4.94 10/6/uL (4.0-5.6); WHITE BLOOD CELLS 8.1 10/3/uL (4.5-10.5)
[2016-10-18 06:39] LABS: BUN (BLOOD UREA NITROGEN) 15 MG/DL (6-23); CALCIUM, SERUM 8.3 MG/DL (8.5-10.4); CHLORIDE, SERUM 105 MMOL/L (96-112); CREATININE 0.82 MG/DL (0.55-1.02); GFR AFRICAN AMERICAN 96 ML/MIN (>=60); GFR NON AFRICAN AMERICAN 83 ML/MIN (>=60); POTASSIUM, SERUM 3.4 MMOL/L (3.5-5.3); SODIUM, SERUM 140 MMOL/L (135-148); TROPONIN I 0.04 NG/ML (<0.05)
[2016-10-18 06:40] LABS: CO2 (CARBON DIOXIDE) 31 MMOL/L (24-34); GLUCOSE, SERUM 77 MG/DL (60-99)
[2016-10-18 15:23] LABS: POTASSIUM, SERUM 3.9 MMOL/L (3.5-5.3)
[2016-10-19 06:17] LABS: BASOPHILS 0.4 %; BASOPHILS ABSOLUTE 0.03 10/3/uL (0.0-0.16); EOSINOPHILS 3.4 %; EOSINOPHILS ABSOLUTE 0.26 10/3/uL (0.0-0.53); HEMATOCRIT 39.6 % (36.0-48.0); HEMOGLOBIN 12.4 g/dL (12.0-16.0); IMMATURE GRANULOCYTES 0.3 %; IMMATURE GRANULOCYTES ABSOLUTE 0.02 10/3/uL (0.0-0.11); LYMPHOCYTES 26.4 %; MANUAL DIFF NO %; MEAN CORPUS HGB CONC 31.3 g/dL (32.0-36.0); MEAN CORPUSCULAR HEMOGLOB 24.8 pg (26.0-34.0); MEAN PLATELET VOLUME 10.3 fL (9.2-13.0); MONOCYTES 8.3 %; MONOCYTES ABSOLUTE 0.63 10/3/uL (0.21-1.20); NEUTROPHILS 61.2 %; NEUTROPHILS ABSOLUTE 4.63 10/3/uL (2.02-8.40); PLATELET COUNT 232 10/3/uL (150-400); RBC DISTRIBUTION WIDTH 17.3 % (12.0-16.0); RED CELL COUNT 5.01 10/6/uL (4.0-5.6); WHITE BLOOD CELLS 7.6 10/3/uL (4.5-10.5)
[2016-10-19 06:36] LABS: BUN (BLOOD UREA NITROGEN) 16 MG/DL (6-23); CALCIUM, SERUM 8.9 MG/DL (8.5-10.4); CHLORIDE, SERUM 99 MMOL/L (96-112); CO2 (CARBON DIOXIDE) 31 MMOL/L (24-34); CREATININE 0.97 MG/DL (0.55-1.02); GFR AFRICAN AMERICAN 78 ML/MIN (>=60); GFR NON AFRICAN AMERICAN 68 ML/MIN (>=60); GLUCOSE, SERUM 75 MG/DL (60-99); SODIUM, SERUM 138 MMOL/L (135-148)
[2016-10-19 15:11] LABS: ASCORBIC ACID (UR NOT ORDER) NEG (NEG); BILIRUBIN, URINE NEGATIVE (NEG); KETONE, URINE NEGATIVE (NEG); LEUKOCYTE ESTERASE(NOT OR NEG (NEG); WBC (NOT ORDERED) (RFLEX) < 1 (0-5)
[2016-10-19 15:21] LABS: CREATININE, URINE 16.1 MG/DL
[2016-10-20 05:08] LABS: BASOPHILS 0.6 %; BASOPHILS ABSOLUTE 0.04 10/3/uL (0.0-0.16); EOSINOPHILS 3.6 %; EOSINOPHILS ABSOLUTE 0.25 10/3/uL (0.0-0.53); HEMOGLOBIN 12.6 g/dL (12.0-16.0); IMMATURE GRANULOCYTES 0.3 %; IMMATURE GRANULOCYTES ABSOLUTE 0.02 10/3/uL (0.0-0.11); LYMPHOCYTES 21.1 %; LYMPHOCYTES ABSOLUTE 1.47 10/3/uL (0.67-4.30); MEAN CORPUS HGB CONC 31.5 g/dL (32.0-36.0); MEAN CORPUSCULAR HEMOGLOB 24.5 pg (26.0-34.0); MEAN CORPUSCULAR VOLUME 77.8 fL (80-100); MEAN PLATELET VOLUME 10.5 fL (9.2-13.0); MONOCYTES 10.6 %; MONOCYTES ABSOLUTE 0.74 10/3/uL (0.21-1.20); NEUTROPHILS 63.8 %; NEUTROPHILS ABSOLUTE 4.46 10/3/uL (2.02-8.40); PLATELET COUNT 214 10/3/uL (150-400); RBC DISTRIBUTION WIDTH 17.2 % (12.0-16.0); RED CELL COUNT 5.14 10/6/uL (4.0-5.6)
[2016-10-20 05:09] LABS: MANUAL DIFF NO %
[2016-10-20 05:32] LABS: BUN (BLOOD UREA NITROGEN) 18 MG/DL (6-23); CALCIUM, SERUM 9.3 MG/DL (8.5-10.4); CHLORIDE, SERUM 97 MMOL/L (96-112); CO2 (CARBON DIOXIDE) 33 MMOL/L (24-34); CREATININE 0.98 MG/DL (0.55-1.02); FREE T4 1.07 NG/DL (0.76-1.46); GFR AFRICAN AMERICAN 77 ML/MIN (>=60); GFR NON AFRICAN AMERICAN 67 ML/MIN (>=60); GLUCOSE, SERUM 151 MG/DL (60-99); POTASSIUM, SERUM 4.4 MMOL/L (3.5-5.3); SODIUM, SERUM 136 MMOL/L (135-148)
[2016-10-21 06:38] LABS: BASOPHILS 0.7 %; BASOPHILS ABSOLUTE 0.05 10/3/uL (0.0-0.16); EOSINOPHILS 1.9 %; EOSINOPHILS ABSOLUTE 0.14 10/3/uL (0.0-0.53); HEMATOCRIT 40.5 % (36.0-48.0); HEMOGLOBIN 12.6 g/dL (12.0-16.0); IMMATURE GRANULOCYTES 0.3 %; IMMATURE GRANULOCYTES ABSOLUTE 0.02 10/3/uL (0.0-0.11); LYMPHOCYTES ABSOLUTE 1.89 10/3/uL (0.67-4.30); MEAN CORPUS HGB CONC 31.1 g/dL (32.0-36.0); MEAN CORPUSCULAR HEMOGLOB 24.2 pg (26.0-34.0); MEAN CORPUSCULAR VOLUME 77.7 fL (80-100); MEAN PLATELET VOLUME 10.2 fL (9.2-13.0); MONOCYTES 9.8 %; MONOCYTES ABSOLUTE 0.71 10/3/uL (0.21-1.20); NEUTROPHILS 61.3 %; NEUTROPHILS ABSOLUTE 4.46 10/3/uL (2.02-8.40); PLATELET COUNT 203 10/3/uL (150-400); RBC DISTRIBUTION WIDTH 17.5 % (12.0-16.0); RED CELL COUNT 5.21 10/6/uL (4.0-5.6); WHITE BLOOD CELLS 7.3 10/3/uL (4.5-10.5)
[2016-10-21 06:42] LABS: MANUAL DIFF NO %
[2016-10-21 06:51] LABS: BUN (BLOOD UREA NITROGEN) 19 MG/DL (6-23); CALCIUM, SERUM 9.4 MG/DL (8.5-10.4); CHLORIDE, SERUM 99 MMOL/L (96-112); CO2 (CARBON DIOXIDE) 35 MMOL/L (24-34); GFR AFRICAN AMERICAN 76 ML/MIN (>=60); GFR NON AFRICAN AMERICAN 65 ML/MIN (>=60); GLUCOSE, SERUM 152 MG/DL (60-99); PHOSPHORUS, SERUM 4.3 MG/DL (2.5-4.5); POTASSIUM, SERUM 4.2 MMOL/L (3.5-5.3); SODIUM, SERUM 135 MMOL/L (135-148)
[2016-10-21] MEDS ORDERED: BUM2 PO (12:01)
[2016-10-21] MEDS ORDERED: Z5 PO (12:03)
[2016-10-21] MEDS ORDERED: KLOR-CON M2020 MEQ PO (12:06)
== END 2016-10-21 14:18 | disposition home or self-care (01) | DRG 293 ==
LOC: ER 04:53 → 7NO 09:09
PROVIDERS: Emergency Medicine; Hospitalist
DX: I50.43 Acute on chronic combined systolic (congestive) and diastolic (congestive) heart failure (principal); E11.65 Type 2 diabetes mellitus with hyperglycemia; I25.10 Atherosclerotic heart disease of native coronary artery without angina pectoris; F32.9 Major depressive disorder, single episode, unspecified; E03.9 Hypothyroidism, unspecified; Z87.01 Personal history of pneumonia (recurrent); F17.210 Nicotine dependence, cigarettes, uncomplicated; E66.9 Obesity, unspecified; Z95.810 Presence of automatic (implantable) cardiac defibrillator; Z86.711 Personal history of pulmonary embolism; Z79.84 Long term (current) use of oral hypoglycemic drugs; Z68.38 Body mass index [BMI] 38.0-38.9, adult
CPT/HCPCS: 71010; 71020; 80048; 80053; 81001; 82533; 82570; 82962; 83605; 83735; 83880; 84100; 84132; 84145; 84156; 84439; 84443; 84481; 84484; 85025; 85610; 85730; 87040; 93005; 93970; 94640; 96365; 96375; 99285; A9270-GY; J0692; J1170; J1205; J2405; J3370; J3475